=== PATIENT | male | born 1960 | race African-American/Black ===

== ENCOUNTER 2016-06-19 22:26 | Emergency (ER) | payer MEDICAID ==
[~2016-06-19 22:26] MED LIST: CLINDAMYCIN HC300 MG PO; CYMBALTA30 M1 PO; DARVOCET-N 1001 TAB PO; EC ASPIRIN325 MG PO; EXCEDRIN CAPLET1 TAB; EXCEDRIN PO; GLUCOPHAGE500 M3 PO; LANTUS100 U/ML; LANTUS100 UNITS/ SC; NEURONTIN300 M1 PO; NORCO 5-325 TA1 EACH PO; NORCO 5/325 TAB1 TAB PO; NOVOLOG FL100 UNIT/2; NOVOLOG100 U/M; PEN-VEE K500 MG PO; XANAX0.5 M1; XANAX0.5 M1 PO; ZESTRIL10 M3 PO
[2016-06-19] MEDS ORDERED: LANTUS100 UNITS/ SC (23:54)
[2016-06-20] MEDS ORDERED: NORCO 5/3251 TAB PO (01:21)
== END 2016-06-20 01:30 ==
LOC: EDMED 22:26
DX: M79.602 Pain in left arm (principal); I10 Essential (primary) hypertension; E11.9 Type 2 diabetes mellitus without complications; Z79.4 Long term (current) use of insulin; Z79.899 Other long term (current) drug therapy